=== PATIENT | female | born 1990 | race Caucasian/White ===

== ENCOUNTER 2017-06-09 11:40 | Emergency (ER) | payer BC ==
--- NOTE | ~2017-06-09 | CR126 ---
[facility] A Service of [facility] RADIOLOGY TEXT RESULTS PATIENT: JESUS WALLER LOCATION: SED : [birth year] UNIT #: [id number] AGE: [address]: ABRAHAM EVANS SEX: F ORDER DR: [id number] [place] [id number] E MR#: [id number] Acc #: [id number] NAME: JESUS WALLER. : 1990 SEX: F STUDY DATE/TIME: 06/09/2017 12:32 UNIT: SED ROOM: STUDY DESCRIPTION: CR Foot Complete Min 3 View Lt Attending Physician: Jessica Gutierrez Ordering Physician: Jessica Gutierrez Primary Care Physician: No Primary Care Physician MEDICAL IMAGING REPORT This report is preliminary unless electronic signature is present. EXAM Left foot series. HISTORY Hit foot on speaker last night while chasing her kid. Fifth toe pain. TECHNIQUE AP, lateral, and oblique radiographs of the left foot are presented. COMPARISON 10/02/2010 FINDINGS There is an acute complete oblique fracture involving the shaft of the proximal phalanx of the fifth digit. The distal fracture fragment shows mild lateral angulation. Minimal, perhaps 1-mm, distraction of fracture fragments. Fracture plane does not enter the proximal interphalangeal joint. No other acute fractures. Old healed fracture, mid shaft fifth metatarsal bone. No soft tissue defect. Soft tissue swelling, lateral aspect of the foot, from mid fifth digital ray distally. Dictated by... Aaron Cottrell M.D. THIS IS AN ELECTRONICALLY VERIFIED REPORT Aaron Cottrell M.D. at 06/09/2017 5:45 PM GUY/robert TD: 06/09/2017 16:58 JOB #: [id number] [facility] A Service [facility] RADIOLOGY TEXT RESULTS PATIENT: JESUS WALLER LOCATION: SED : 90 UNIT #: [id number] AGE: [address]: ABRAHAM EVANS SEX: F ORDER DR: MEDICAL IMAGING REPORT Page 1 of 1
[~2017-06-09 11:40] MED LIST: AMOXICILLIN875 MG PO; FLONASE 0.05% N16 G1; LORTAB 5/500 TA1 TA1 PO; NO MEDICATIONS; PRENATAL VITAM1 EAC1 PO; ZYRTEC PO; [UNRECOGNIZED DRUG - OTHER] PO
== END 2017-06-09 14:17 | disposition home or self-care (01) ==
LOC: SED 11:40
DX: S92.512A Displaced fracture of proximal phalanx of left lesser toe(s), initial encounter for closed fracture (principal); F17.210 Nicotine dependence, cigarettes, uncomplicated; W22.8XXA Striking against or struck by other objects, initial encounter; Y92.009 Unspecified place in unspecified non-institutional (private) residence as the place of occurrence of the external cause
CPT/HCPCS: 29405; 73630; 84703; 99283